=== PATIENT | male | born 1940 | race African-American/Black ===

== ENCOUNTER 2021-12-27 15:47 | Emergency (ER) | payer MEDICARE, OTHER ==
[~2021-12-27] VITALS: Ht 188 cm; Wt 108.0 kg
[~2021-12-27 15:47] MED LIST: ALLO100T57; FINA5TAB3; NIFE30TA94; PRAV10TA35; TRIA1TAB5
[2021-12-27 16:03] VITALS: BP 139/85
[2021-12-27] MEDS ORDERED: TETANUS, DIPHTHERIA, PERTUSSIS VAC/PF 0.5ML (>10YR OLD) IM ONE (17:30)
[2021-12-27] MEDS ORDERED: ACETAMINOPHEN 325MG TABLET PO ONE (17:30)
[2021-12-27] MEDS ORDERED: CEFAZOLIN 1000MG PREMIX 50 ML IV ONE (18:00)
[2021-12-27] MEDS ORDERED: AMOX1TAB16 MT (18:06)
== END 2021-12-27 18:45 | disposition home or self-care (01) ==
LOC: ER 15:47
DX: S62.611B Displaced fracture of proximal phalanx of left index finger, initial encounter for open fracture (principal); W34.010A Accidental discharge of airgun, initial encounter; Y93.89 Activity, other specified; Y92.018 Other place in single-family (private) house as the place of occurrence of the external cause
CPT/HCPCS: 73140; 90471; 90715; 96365; 99284; J0690